=== PATIENT | female | born 1990 | race Caucasian/White ===

== ENCOUNTER 2017-09-17 20:15 | Emergency (ER) | payer OTHER ==
[2017-09-17 20:32] VITALS: BP 133/85; PULSE 79; TEMP 97.4; BMI 30.7
--- NOTE | 2017-09-17 20:41 | PDOC ---
History of Present Illness - General History Source: Patient Exam Limitations: No Limitations - History of Present Illness Initial Comments: 09/17/17 20:45 The patient is a 26 year old female, with a significant past medical history of a left patellar fracture, who presents to the emergency department s/p mechanical fall earlier today. The patient reports she was going down hill while skiing, when she slipped, and her skis ended up behind her and she attempted to break the fall with her right arm. The patient reports associated right shoulder and upper arm pain. Patient reports she iced the area and a sling was placed, with minimal relief of pain. Patient reports her pain is exacerbated movement. She denies any other trauma, loss of consciousness, headache, changes in vision, neck/back pain, dizziness, or lightheadedness. She denies any chest pain or shortness of breath. She denies any fever, chills, cough, or headache. She denies any abdominal pain, nausea, or vomiting. Allergies: NKDA Past Surgical History: None reported. Social History: Non smoker. No ETOH or recreational drug use. <Nikia Christian - Last Filed: 09/17/17 21:29> <Cara Reyes - Last Filed: 09/18/17 04:14> - General Chief Complaint: Pain Stated Complaint: RIGHT SHOULDER INJURY WHILE SKIING Time Seen by Provider: 09/17/17 20:20 Past History <Nikia Christian - Last Filed: 09/17/17 21:29> - Past Medical History COPD: No Other medical history: LEFT PATELLA FRAC - Suicide/Smoking/Psychosocial Hx Smoking History: Never smoked Have you smoked in the past 12 months: No Information on smoking cessation initiated: No Hx Alcohol Use: No Drug/Substance Use Hx: No Substance Use Type: None <Cara Reyes - Last Filed: 09/18/17 04:14> - Past Medical History Allergies/Adverse Reactions: Allergies Allergy/AdvReac Type Severity Reaction Status Date / Time No Known Allergies Allergy Unverified 09/17/17 20:42 Home Medications: Ambulatory Orders Oxycodone HCl/Acetaminophen [Percocet 5-325 mg Tablet] 1 tab PO Q6H PRN #6 tablet MDD 3 tabs 09/18/17 Oxycodone HCl/Acetaminophen [Percocet 5-325 mg Tablet] 1 tab PO Q6H PRN #6 tablet MDD 3 tabs 09/18/17 Review of Systems - Review of Systems Able to Perform ROS?: Yes Comments:: 09/17/17 20:45 CONSTITUTIONAL: Absent: fever, no chills, no fatigue EYES: Absent: visual changes ENT: Absent: ear pain, no sore throat CARDIOVASCULAR: Absent: chest pain, no palpitations RESPIRATORY: Absent: cough, no SOB GI: Absent: abdominal pain, no nausea, no vomiting, no constipation, no diarrhea GENITOURINARY: Absent: dysuria, no frequency, no hematuria MUSKULOSKELETAL: Present: Right arm/shoulder pain Absent: back pain, neck pain SKIN: Absent: rash NEURO: Absent: headache, dizziness <Christian,Giomilsy - Last Filed: 09/17/17 21:29> *Physical Exam - Vital Signs Last Vital Signs Temp Pulse Resp BP Pulse Ox 97.4 F L 79 18 133/85 100 09/17/17 20:16 09/17/17 20:16 09/17/17 20:16 09/17/17 20:16 09/17/17 20:16 - Physical Exam Comments: 09/17/17 21:29 GENERAL: The patient is awake, alert, and fully oriented, in no acute distress. HEAD: Normal with no signs of trauma. EYES: Pupils equal, round and reactive to light, extraocular movements intact, sclera anicteric, conjunctiva clear with no pallor. ENT: Ears normal, nares patent, oropharynx clear without exudates. Moist mucous membranes. NECK: Normal range of motion, supple without lymphadenopathy, JVD, or masses. LUNGS: Breath sounds equal, clear to auscultation bilaterally. No wheeze/ crackles. HEART: Regular rate and rhythm, normal S1 and S2 without murmur or rub. CHEST: No chest wall tenderness EXTREMITIES: RUE moderate edema of the proximal upper arm, no tenderness, no deformities or ecchymosis. Marked main with passive and active abduction of the right arm. Moderate pain with active and passive extension and flexion of the elbow. Distal extremities strength and sensation intact. No clubbing or cyanosis. No cords, erythema, or tenderness. NEUROLOGICAL: Cranial nerves II through XII grossly intact. Normal speech, normal gait. SKIN: Warm, Dry, normal turgor, no rashes or lesions noted. <Nikia Christian - Last Filed: 09/17/17 21:29> - Vital Signs Last Vital Signs Temp Pulse Resp BP Pulse Ox 97.4 F L 79 18 133/85 100 09/17/17 20:16 09/17/17 20:16 09/17/17 20:16 09/17/17 20:16 09/17/17 20:16 <Cara Reyes - Last Filed: 09/18/17 04:14> Progress Note - Progress Note Progress Note: Documentation has been prepared under my direction and personally reviewed by me in its entirety. I attest that this documented accurately reflects all work, treatment, procedures and medical decision making performed by me. <Cara Reyes - Last Filed: 09/18/17 04:14> Medical Decision Making - Medical Decision Making As noted above, this otherwise healthy 26-year-old woman presents with history of right shoulder injury that she sustained while skiing earlier today. No LOC/ neck injury and patient has no other complaints. Exam as noted. Right shoulder x-ray reveals acute anterior dislocation of the shoulder without fracture. While patient was being prepared for reduction of the dislocation, she stretched her arm/shoulder and heard a "clunk". After this, she had decreased pain and increased mobility. Reexamination revealed marked increase in mobility with less pain on abduction of the arm. Repeat right shoulder x-ray reveals humerus in proper positioning in the glenoid fossa. No fracture revealed. Patient had spontaneous reduction of her right anterior shoulder dislocation. Sling was applied. Patient will be discharged with follow-up with Dr. Wooten (patient had been seen by Dr. Santacruz in the past). Meanwhile, she should keep the sling in place at all times; for mild pain Motrin /Aleve/Tylenol will be taken. Patient was also given a small (#6) prescription for Percocet 5/325 (maximum 3 tablets per day) <Cara Reyes - Last Filed: 09/18/17 04:14> *DC/Admit/Observation/Transfer - Attestations Scribe Attestion: 09/17/17 20:46 Documentation prepared by Nikia Christian, acting as medical billing service for Cara Reyes MD. <Nikia Christian - Last Filed: 09/17/17 21:29> <Cara Reyes - Last Filed: 09/18/17 04:14> Diagnosis at time of Disposition: Shoulder dislocation Qualifiers: Encounter type: initial encounter Laterality: right Qualified Code(s): S43.004A - Unspecified dislocation of right shoulder joint, initial encounter - Discharge Dispostion Disposition: HOME Condition at time of disposition: Good - Prescriptions Prescriptions: Oxycodone HCl/Acetaminophen [Percocet 5-325 mg Tablet] 1 tab PO Q6H PRN #6 tablet MDD 3 tabs PRN Reason: Severe Pain Oxycodone HCl/Acetaminophen [Percocet 5-325 mg Tablet] 1 tab PO Q6H PRN #6 tablet MDD 3 tabs PRN Reason: Severe Pain - Referrals Referrals: Toi Osborne MD [Staff Physician] - - Patient Instructions Printed Discharge Instructions: Shoulder Dislocation Additional Instructions: Keep sling in place Ibuprofen/naproxen/acetaminophen as needed for pain Call orthopedist (/[facility]) tomorrow to arrange follow-up within the next week Return to ER if you have recurrent severe pain in shoulder
[2017-09-17] MEDS ORDERED: PROPOFOL 20 ML ONE (23:47)
== END 2017-09-18 00:40 | disposition home or self-care (01) ==
LOC: FER 20:15
PROC: 0RSJXZZ Reposition Right Shoulder Joint, External Approach (ICD-10-PCS; principal; 2017-09-17)
DX: S43.004A Unspecified dislocation of right shoulder joint, initial encounter (principal); W18.39XA Other fall on same level, initial encounter; Y93.23 Activity, snow (alpine) (downhill) skiing, snowboarding, sledding, tobogganing and snow tubing; Y92.89 Other specified places as the place of occurrence of the external cause
CPT/HCPCS: 73030-TC-RT-FY; 84703; 99283-25